=== PATIENT | male | born 1940 | race Caucasian/White ===

== ENCOUNTER 2018-02-18 13:39 | Inpatient (IN) | payer OTHER ==
[~2018-02-18] VITALS: Ht 185.4 cm; Wt 117.9 kg
[~2018-02-18 13:39] MED LIST: CARDURA4 MG PO; COLESTID1 GM PO; LOTREL 5-10 MG1 EACH; MOBIC7.5 MG PO; OMEPRAZOLE20 M2; PERCOCET PO; PROSCAR 5MG TABL5 MG PO
[2018-02-18 13:46] VITALS: BP 206/126
[2018-02-18 14:11] LABS: HEMATOCRIT 47.3 % (42.0-52.0); HEMOGLOBIN 15.5 gm/dL (14.0-18.0); MCH 29.3 pg (26.0-34.0); MCHC 32.7 g/dL (28.0-37.0); MCV 89.6 fL (80.0-100.0); MPV 9.3 fl. (7.2-11.1); NUCLEATED RBCS 0 /100WBC; PLATELET COUNT* 122 thou/uL (150-400); RBC 5.28 mil/uL (4.50-6.00); RDW-CV 14.3 % (10.5-14.5); WBC 11.8 thou/uL (4.0-11.0)
[2018-02-18 14:22] LABS: APTT 25.5 Seconds (25.0-31.3); INR 1.1
[2018-02-18 14:23] LABS: ANION GAP 10 mmol/L (7-16); BUN 13 mg/dL (7-18); CALCIUM 8.6 mg/dL (8.5-10.1); CHLORIDE 104 mmol/L (98-107); CO2 24 mmol/L (21-32); CREATININE 1.2 mg/dL (0.6-1.3); GLUCOSE 123 mg/dL (70-99); POTASSIUM 3.8 mmol/L (3.5-5.1); SODIUM 138 mmol/L (136-145)
[2018-02-18 14:31] LABS: BE -6.4 mmol/L (-2 to +3); HCO3 17.6 mmol/L (22.0-26.0); PCO2 31.5 mmHg (35.0-45.0); PO2 68.2 mmHg (75.0-100.0); pH 7.366 (7.340-7.450)
[2018-02-18 14:33] LABS: ALBUMIN 3.6 g/dL (3.4-5.0); ALKALINE PHOSPHATASE 60 U/L (46-116); LIPASE 79 U/L (73-393); MAGNESIUM 1.7 mg/dL (1.8-2.4); NT-PRO BRAIN NAT PEPTIDE 2230 pg/mL (<300); SGOT 16 U/L (15-37); SGPT 29 U/L (30-65); TOTAL BILIRUBIN 0.7 mg/dL (<0.1-1.0); TOTAL PROTEIN 7.7 g/dL (6.4-8.2); TROPONIN-I LEVEL <0.06 ng/mL (<0.06)
[2018-02-18 14:52] LABS: ABSOLUTE EOSINOPHILS 0.1 thou/uL (0.0-0.7); ABSOLUTE LYMPHOCYTES 1.2 thou/uL (0.8-5.3); ABSOLUTE MONOCYTES 0.9 thou/uL (0.0-1.2); ABSOLUTE NEUTROPHILS 9.6 thou/uL (1.6-8.1)
[2018-02-18 14:53] LABS: LARGE PLATELETS OCCASIONAL; PLATELET ESTIMATE DECREASED
[2018-02-18 15:07] VITALS: BP 128/69
[2018-02-18 16:33] VITALS: BP 147/81
--- NOTE | 2018-02-18 17:30 | NUR ---
PT ORIENTED TO ROOM AND UNIT. FOUND TO BE IN NEW ONSET AFIB. CONTACT DR. CAIN TO INFORM WILL START CARDIZEM PO AND CALLED IN CARDIAC CONSULT.
[2018-02-18 20:00] VITALS: BP 137/74
[2018-02-19] VITALS (7 sets, daily range): BP systolic 117–139; BP diastolic 62–79
--- NOTE | 2018-02-19 04:33 | NUR ---
RECEIVED REPORT AND ASSUMED CARE OF PATIENT AT 1930. 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 ASSESSMENT AND VITALS COMPLETED CHARTED, VSS. PATIENT A&OX4. PATIENT DENIES PAIN AND DISCOMFORT. PATIENT UP INDEPENDENTLY TO BATHROOM, PATIENT DOES HAVE SOME SHORTNESS OF AIR ON EXERTION BUT QUICKLY RECOVERS WITH REST. PATIENT REMAINS ON 6L O2 PER NC, SATS WNL . HOURLY ROUNDING OBSERVED. CALL LIGHT WITHIN REACH.
[2018-02-19 04:43] LABS: HEMATOCRIT 44.6 % (42.0-52.0); HEMOGLOBIN 14.6 gm/dL (14.0-18.0); MCH 29.5 pg (26.0-34.0); MCHC 32.8 g/dL (28.0-37.0); MPV 10.1 fl. (7.2-11.1); RBC 4.96 mil/uL (4.50-6.00); RDW-CV 14.3 % (10.5-14.5); WBC 11.5 thou/uL (4.0-11.0)
[2018-02-19 05:26] LABS: ALBUMIN 3.3 g/dL (3.4-5.0); CALCIUM 8.6 mg/dL (8.5-10.1); CREATININE 1.4 mg/dL (0.6-1.3); POTASSIUM 4.4 mmol/L (3.5-5.1); TOTAL BILIRUBIN 0.4 mg/dL (<0.1-1.0); TOTAL PROTEIN 6.8 g/dL (6.4-8.2)
--- NOTE | 2018-02-19 09:00 | NUR ---
VSS, ASSUMED CARE IN THE AM, ASSESSMENT PERFORMED AND CHARTED, FALL PRECAUTIONS IN PLACE AND CALL LIGHT IN REACH, PT IS ON 6L NC AND IS UP AD MAREN AND DENIES ANY PAIN. HE IS A FIB ON THE MONITOR, HE GOAL IS TO IMPROVE BREATHING. WILL FOLLOW WITH PLAN OF CARE.
--- NOTE | 2018-02-19 12:00 | NUR ---
VSS, ASSUMED CARE IN THE AM, ASSESSMENT PERFORMED AND CHARTED, FALL PRECAUTIONS IN PLACE AND CALL LIGHT IN RECAH, PT IS ON 4-6L NC AND IS UP AD MAREN, PT IS AFIB ON THE MONITOR, HE DENIES ANY PAIN AND HIS GOAL IS TO SIT UP IN CHAIR AND IMPROVE BREATHING, WILL FOLLOW WITH PLAN OF CARE.
--- NOTE | 2018-02-19 12:43 | EKG ---
[place] [address] ELECTROCARDIOGRAM REPORT Name: LEXIS HOBBS Room: [address] IN [facility]#: [id number] Admission: 02/18/18 Attend Phys: Arlene Ramirez MD Discharge: Date of : 40 Report #: [id number] THIS REPORT FOR: //name// [facility] ED Test Date: 2018-02-18 Test Time: 14:03:07 Pat Name: LEXIS SANCHEZN Department: Room: Gender: M Scientific Diver: : 1940 Requested By: Almas Mendez Order Number: [id number] MD: Reynaldo Jarrell Measurements Intervals [place] Rate: 115 P: 0 MA: 124 QRS: -53 QRSD: 126 T: 117 QT: 356 QTc: 493 Interpretive Statements atrial fibrillation Nonspecific IVCD with LAD Abnormal T, consider ischemia, lateral leads No previous ECG available for comparison Electronically Signed On 02-19-2018 12:43:06 CDT by Reynaldo Jarrell [email or web address] <ELECTRONICALLY SIGNED> By: Reynaldo Jarrell MD, [facility] 02/19/18 1243 D: [id number] 140 Reynaldo Jarrell MD, FACC /EPI
--- NOTE | 2018-02-19 12:45 | EKG ---
[place] [address] ELECTROCARDIOGRAM REPORT Name: LEXIS HOBBS Room: [address] ADM IN M.R.#: [id number] Admission: 02/18/18 Attend Phys: Arlene Ramirez MD Discharge: Date of : 40 Report #: [id number] THIS REPORT FOR: //name// [facility] Test Date: 2018-02-18 Test Time: 16:10:54 Pat Name: LEXIS HOBBS Department: Room: [address] Gender: M Manager Image: : 1940 Requested By: Arlene Ramirez Order Number: [id number] Reading MD: Reynaldo Jarrell Measurements Intervals [place] Rate: 95 P: GA: QRS: -46 QRSD: 128 T: 136 QT: 361 QTc: 454 Interpretive Statements Atrial fibrillation left axis nonspecific t wave changes Electronically Signed On 02-19-2018 12:45:22 CDT by Reynaldo Jarrell [email or web address] <ELECTRONICALLY SIGNED> By: Reynaldo Jarrell MD, [facility] 02/19/18 1245 1610 1610 Reynaldo Jarrell MD, FACC /EPI
--- NOTE | 2018-02-19 12:59 | 2DMMODE ---
[place] [address] 2 D/M-MODE ECHOCARDIOGRAM Name: LEXIS HOBBS Room: [address] IN [facility]#: [id number] Admission: 02/18/18 Attend Phys: Arlene Ramirez, Discharge: Date of : 40 Date of Service: 02/19/18 1259 Report #: [id number] THIS REPORT FOR: //name// APPROVED REPORT Study performed: 02/19/2018 11:05:45 EXAM: Comprehensive 2D, Doppler, and color-flow Echocardiogram Patient Location: In-Patient Room #: 222 Status: routine BSA: 2.41 HR: 56 bpm BP: 122/74 mmHg Rhythm: Atrial Fibrillation Other Information Study Quality: Good Indications Atrial Fibrillation 2D Dimensions LVEF(%): 62.11 (>50%) IVSd: 10.17 (7-11mm) LVOT Diam: 23.65 (18-24mm) LVDd: 46.36 mm PWd: 10.64 (7-11mm) Ascending Ao: 38.23 (22-36mm) LVDs: 30.88 (25-40mm) Aortic Root: 40.40 mm Salas's LVEF: 62.11 % Volumes Left Atrial Volume (Systole) LA ESV Index: 46.50 mL/m2 Aortic Valve AoV Peak Jeremías.: 1.17 m/s AO Peak Gr.: 5.51 mmHg LVOT Max P.58 mmHg AO Mean Gr.: 3.71 mmHg LVOT Mean P.76 mmHg LVOT Max V: 1.18 m/s AO V2 VTI: 24.21 cm LVOT Mean V: 0.76 m/s DUTCH (VTI): 4.04 cm2 LVOT V1 VTI: 22.28 cm Mitral Valve MV Decel. Time: 263.78 [place] [address] 2 D/M-MODE ECHOCARDIOGRAM Name: LEXIS HOBBS Room: [address] IN ..#: [id number] Admission: 02/18/18 Attend Phys: Arlene Ramirez, Discharge: Date of : 40 Date of Service: 02/19/18 1259 Report #: [id number] MV PHT: 76.50 ms MVA (PHT): 2.88 cm2 TDI Medial E' Jeremías.: 0.09 m/s Lateral E' Jeremías.: 0.14 m/s Pulmonary Valve PV Peak Jeremías.: 0.94 m/s PV Peak Gr.: 3.50 mmHg Tricuspid Valve RAP Estimate: 5.00 mmHg TR Peak Gr.: 33.56 mmHg RVSP: 38.56 mmHg PA Pressure: 38.56 mmHg Left Ventricle The left ventricle is normal size. There is normal LV segmental wall motion. There is normal left ventricular wall thickness. Left ventricular systolic function is normal. The left ventricular ejection fraction is within the normal range. LVEF is 55-60%. This study is not technically sufficient to allow evaluation of the LV diastolic function due to atrial fibrillation. Right Ventricle The right ventricle is normal size. The right ventricular systolic function is normal. Atria Left atrium is moderately dilated. The right atrium size is normal. Aortic Valve The aortic valve is normal in structure. Trace aortic regurgitation. There is no aortic valvular stenosis. Mitral Valve The mitral valve is normal in structure. Trace mitral regurgitation. No evidence of mitral valve stenosis. Tricuspid Valve The tricuspid valve is normal in structure. Mild tricuspid regurgitation. estimated pa pressure 40 mm Hg Pulmonic Valve The pulmonary valve is normal in structure. Mild [place] [address] 2 D/M-MODE ECHOCARDIOGRAM Name: FABYLEXIS Joseph Room: [address]#: [id number] Admission: 02/18/18 Attend Phys: Arlene Ramirez, Discharge: Date of : 40 Date of Service: 02/19/18 1259 Report #: [id number] Great Vessels Aortic root is mildly dilated. IVC is normal in size and collapses with >50% inspiration Pericardium There is no pericardial effusion. <Conclusion> LVEF is 55-60%. Left atrium is moderately dilated. Mild tricuspid regurgitation. estimated pa pressure 40 mm Hg <ELECTRONICALLY SIGNED> By: Reynaldo Jarrell MD, FACC 02/19/18 1259 1259 125 Reynaldo Jarrell MD, FACC /INF
--- NOTE | 2018-02-19 14:08 | CON ---
[address] [address] CONSULTATION Name: LEXIS HOBBS Room: [address] IN .R.#: [id number] Admission: 02/18/18 Attend Phys: Arlene Ramirez MD Discharge: Date of : 40 Report #: [id number] THIS REPORT FOR: //name// CC: Kim Ojeda [facility] physician/PCP Arlene Ramirez DATE OF SERVICE: 02/19/2018 HISTORY OF PRESENT ILLNESS: The patient is a 77-year-old white male who I was asked to see in the hospital today because he was noted to be in atrial fibrillation. The patient denies a previous history of heart disease. In fact, he has had a pharmacologic stress test in the past, supervised by Dr. Jim and was found to have no evidence of heart disease. He does have a long history of hypertension. He does not exercise on a regular basis. He was doing well until 3 days ago he started to cough. He had sinus drainage and felt chills. He was short of breath and felt a tightness in his chest. His brought him to the emergency room yesterday and he was felt to have bronchitis. He was noted to be in atrial fibrillation. Cardiology consultation was requested. He denies exertional chest tightness or jaw pain. He has had edema recently. He denied his heart beating irregular. He denied any lightheadedness or syncope. He has had no history of heart murmur. PAST MEDICAL HISTORY: He has had shoulder surgery, appendectomy, cataract extraction, and hypertension. MEDICATIONS ON ADMISSION: Consisted of Norvasc, Proscar, Cardura, Mobic, colestipol, and lisinopril. ALLERGIES: He has an intolerance to SULFA DRUGS. FAMILY HISTORY: His mother had heart disease. 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 He stays active, riding a motorcycle. Quit smoking in 1981, rarely drinks alcohol. REVIEW OF SYSTEMS: He has had no history of a stroke. He has had asthma. No history of peptic ulcer disease, liver disease, kidney disease, cancer, chronic skin condition, or psychiatric illness. He wears glasses. PHYSICAL EXAMINATION: GENERAL: Revealed a large, elderly male, lying in bed. He appeared in no acute distress. He weighed 260 pounds. VITAL SIGNS: He had blood pressure of 160/90, pulse is 90, and he was afebrile. HEENT: He was anicteric. Conjunctivae are pink. [place] [address] CONSULTATION Name: LEXIS HOBBS Room: [address] IN ..#: [id number] Admission: 02/18/18 Attend Phys: Arlene Ramirez MD Discharge: Date of : 40 Report #: [id number] NECK: Veins difficult to assess due to obesity. No carotid bruits. CHEST: Revealed bilateral coarse breath sounds. HEART: Irregular rhythm. No significant murmur. ABDOMEN: Obese. EXTREMITIES: Had no edema. Dorsalis pedis pulse 3+ in the left, cannot be palpated in the right. SKIN: Cool and dry. NEUROLOGIC: Nonfocal. PSYCHIATRIC: Mood is appropriate. His ECG showed what appeared to be atrial fibrillation with a left axis deviation. His workup in the emergency room yesterday, he had a chest x-ray that showed no infiltrate, normal heart size. He had previous lab work done yesterday that showed BUN 16, creatinine 1.4, glucose 157. His troponin 0.06. BNP 2230. TSH 0.6. White blood cell count 11.5 and hemoglobin 14.6. IMPRESSION AND RECOMMENDATIONS: 1. Bronchitis. 2. Atrial fibrillation. I would check echocardiogram. At this time, I would aim for anticoagulation and rate control only. I would not attempt cardioversion. 3. Obesity. 4. Hypertension. The patient has been on a calcium juany, JACK inhibitor, and alpha juany. 5. History of asthma. <ELECTRONICALLY SIGNED> By: Reynaldo Jarrell MD, [facility] 02/19/18 1408 0945 1019Davimali Jarrell MD, FAC /nt
--- NOTE | 2018-02-19 14:17 | NUR ---
Pt is A&O. Resides at home with his . Independent with ADLs. No DME. No home o2. No hx of HH or SNF. Goal is to return home at or. Following.
[2018-02-20 04:13] VITALS: BP 115/77
--- NOTE | 2018-02-20 04:37 | NUR ---
PATIENT PARTIALLY PROGRESSING TOWARDS GOALS: PATIENT ABLE TO BE WEANED DOWN TO 4L O2 NC WITH SATS >92%, ALTHOUGH PATIENT'S LUNGS WHEEZING. PATIENT SHORT OF BREATH WITH EXERTION. 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 PATIENT CONCERNED ABOUT ELEVATED BLOOD SUGAR, EDUCATION PROVIDED ABOUT EFFECTS OF STEROIDS AND ASSURED PATIENT OF HGB A1C CHECK. PATIENT VERBALIZES UNDERSTANDING. HOURLY ROUNDING OBSERVED, CALL LIGHT WITHIN REACH
[2018-02-20 04:44] LABS: CHOLESTEROL 131 mg/dL (<200); HDL CHOLESTEROL 69 mg/dL (>40); LDL CHOLESTEROL 56 mg/dL (<100); SERUM ASSESSMENT CLEAR; TC:HDL 1.9 Ratio (Not establshd); TRIGLYCERIDE 33 mg/dL (<150); VLDL 7 mg/dL (<40)
[2018-02-20 08:30] VITALS: BP 134/85
--- NOTE | 2018-02-20 11:02 | NUR ---
WAS ASKED TO CHECK COPAY FOR XARELTO 20MG TABS/MONTHLY SUPPLY. CALLED IN SCRIPT FROM DR MCLEOD TO ZANA/SURJIT. PER RANDALL, COPAY IS $75 FOR ONE MONTH
--- NOTE | 2018-02-20 11:08 | EKG ---
[place] [address] ELECTROCARDIOGRAM REPORT Name: LEXIS HOBBS Room: [address] ADM IN M.R.#: [id number] Admission: 02/18/18 Attend Phys: Arlene Ramirez MD Discharge: Date of : 40 Report #: [id number] THIS REPORT FOR: //name// [facility] Test Date: 2018-02-20 Test Time: 08:36:31 Pat Name: LEXIS HOBBS Department: Room: [address] Gender: M Pedodontist: : 1940 Requested By: Reynaldo Jarrell Order Number: [id number] Reading MD: Kit Marie Measurements Intervals [place] Rate: 63 P: MA: QRS: -42 QRSD: 133 T: 127 QT: 415 QTc: 425 Interpretive Statements Atrial fibrillation Left bundle branch block Baseline wander in lead(s) V1 Compared to ECG 02/18/2018 16:10:54 Left bundle-branch block now present T-wave abnormality no longer present Electronically Signed On 02-20-2018 11:08:17 CDT by Kit Marie [email or web address] <ELECTRONICALLY SIGNED> By: Kit Marie MD, [facility] 02/20/18 1108 0836 0836 Kit Marie MD, [facility] /EPI
[2018-02-20 12:41] VITALS: BP 156/76
--- NOTE | 2018-02-20 14:52 | NUR ---
Updated Pt regarding Xarelto cost, $75. Pt and in agreement and stated "we will have to make it work."
[2018-02-20 16:00] VITALS: BP 131/63
--- NOTE | 2018-02-20 17:44 | NUR ---
PATIENT IS ALERT AND ORIENTED TODAY VERY PLEASANT, HAS BEEN AT BEDSIDE TODAY. SOME COMPLAINTS OF PAIN WHEN COUGHING. VITAL SIGNS HAVE BEEN STABLE, PATIENT HAS BEEN ON ROOM AIR THIS AFTERNOON AND HAS MAINTAINED OXYGEN SATURATION IN THE MID 90'S. PATIENT IS UP AD MAREN IN ROOM, CALLS FOR HELP IF NEEDED. CALL LIGHT IS IN REACH, WILL CONTINUE TO MONITOR.
[2018-02-20 20:23] VITALS: BP 142/79
[2018-02-20 23:49] VITALS: BP 117/52
[2018-02-21 02:07] LABS: GLYCOHEMOGLOBIN (HGB A1C) 5.7 % (4.8-5.6)
[2018-02-21 04:00] VITALS: BP 128/78
[2018-02-21 04:13] LABS: HEMATOCRIT 42.1 % (42.0-52.0); HEMOGLOBIN 13.9 gm/dL (14.0-18.0); MCH 29.4 pg (26.0-34.0); MCV 89.1 fL (80.0-100.0); MPV 9.6 fl. (7.2-11.1); RBC 4.73 mil/uL (4.50-6.00); RDW-CV 14.6 % (10.5-14.5); WBC 12.7 thou/uL (4.0-11.0)
[2018-02-21 04:26] LABS: ALBUMIN 2.9 g/dL (3.4-5.0); CALCIUM 9.4 mg/dL (8.5-10.1); CREATININE 1.4 mg/dL (0.6-1.3); MAGNESIUM 2.4 mg/dL (1.8-2.4); PHOSPHORUS* 3.8 mg/dL (2.5-4.9); POTASSIUM 4.7 mmol/L (3.5-5.1)
--- NOTE | 2018-02-21 06:43 | NUR ---
Pt reports he is feeling very well this morning. On RA, VSS. States he is hopeful of being discharged today. Reports that he noticed that his sputum is darker this morning than it was previously. Will continue to monitor.
[2018-02-21 08:00] VITALS: BP 141/80
[2018-02-21] MEDS ORDERED: PREDNISONE 10 M10 MG PO (08:37)
[2018-02-21] MEDS ORDERED: LEVAQUIN 500 M500 M2 PO (08:37)
[2018-02-21] MEDS ORDERED: XARELTO20 MG PO (08:37)
[2018-02-21] MEDS ORDERED: LASIX 40 MG TAB40 M1 PO (08:37)
[2018-02-21] MEDS ORDERED: CARDIZEM CD120 MG PO (08:37)
[2018-02-21] MEDS ORDERED: POTASSIUM20 PO (08:37)
--- NOTE | 2018-02-21 10:35 | NUR ---
ASSUMED CARE OF PT AT 0730. PT SITTING UP IN THE CHAIR WAITING FOR BREAKFAST. PT A&0X4, DENIES ANY PAIN OR SHORTNESS OF BREATH. PT COMPLAINS OF CONSTIPATION. MILK OF MAG GIVEN. PT [place]. PT TRACING AFIB WITH BBB ON THE ROLL COVERER. RATE CONTROLLED IN THE 80'S. PT ON RA SAT UPPER 90'S. PT STATES HE HAS PRODUCTIVE COUGH THAT IS DARKER GREEN/BROWN. SPUTUM NOT OBSERVED. PT UP AD MAREN IN ROOM. PT GOAL FOR TODAY IS TO TRANSITION TO PO ANTIBIOTICS AND STEROIDS AND DISCHARGE HOME THIS AFTERNOON. AM ASSESSMENT CHARTED. MEDICATIONS PER MAR. PT REPOSITIONS SELF. HOURLY ROUNDING OBSERVED. BED IN LOW POSITION. CALL LIGHT WITHIN REACH. WILL CONTINUE PLAN OF CARE.
[2018-02-21 15:58] VITALS: BP 141/80
--- NOTE | 2018-02-21 16:35 | NUR ---
DISCHARGE ORDERS RECEIVED. DISCHARGE INSTRUCTIONS, CARE NOTES, SCRIPTS AND FOLLOW UP APPTS GIVEN TO PT. PT COMMUNICATES UNDERSTANDING OF DISCHARGE TEACHING. IV AND LOTTERY CLERK REMOVED. PT DISCHARGED WITH ALL BELONGINGS AND PAPERWORK VIA WHEELCHAIR WITH NURSING STAFF TO SPOUSE OWN PERSONAL VEHICLE.
== END 2018-02-21 16:32 | disposition home or self-care (01) | DRG 291 ==
LOC: M.ERS 13:39 → M.TBA-ER 14:37 → M.2W 14:37
PROVIDERS: Family Medicine; Internal Medicine Cardiovascular Disease; ADMIT Internal Medicine
DX: I50.33 Acute on chronic diastolic (congestive) heart failure (principal); J96.01 Acute respiratory failure with hypoxia; J45.901 Unspecified asthma with (acute) exacerbation; R65.10 Systemic inflammatory response syndrome (SIRS) of non-infectious origin without acute organ dysfunction; M19.90 Unspecified osteoarthritis, unspecified site; I12.9 Hypertensive chronic kidney disease with stage 1 through stage 4 chronic kidney disease, or unspecified chronic kidney disease; N18.3 Chronic kidney disease, stage 3 (moderate); K21.9 Gastro-esophageal reflux disease without esophagitis; J44.9 Chronic obstructive pulmonary disease, unspecified; J40 Bronchitis, not specified as acute or chronic; I48.91 Unspecified atrial fibrillation; E66.9 Obesity, unspecified; Z90.49 Acquired absence of other specified parts of digestive tract; Z98.49 Cataract extraction status, unspecified eye; Z79.899 Other long term (current) drug therapy; Z88.8 Allergy status to other drugs, medicaments and biological substances; Z88.2 Allergy status to sulfonamides; Z87.891 Personal history of nicotine dependence; Z68.34 Body mass index [BMI] 34.0-34.9, adult

== ENCOUNTER → 2018-02-28 | Outpatient (CLI) | payer OTHER ==
[~2018-02-28] MED LIST changes: +CARDIZEM CD120 MG PO; +LASIX 40 MG TAB40 M1 PO; +LEVAQUIN 500 M500 M2 PO; +POTASSIUM20 PO; +PREDNISONE 10 M10 MG PO; +XARELTO20 MG PO
[2018-02-28 11:20] LABS: CALCIUM 9.3 mg/dL (8.5-10.1); CREATININE 1.5 mg/dL (0.6-1.3); POTASSIUM 4.2 mmol/L (3.5-5.1)
== END ==
LOC: M.LAB 10:21
PROVIDERS: Nurse Practitioner
DX: I11.0 Hypertensive heart disease with heart failure (principal); I50.32 Chronic diastolic (congestive) heart failure; J45.909 Unspecified asthma, uncomplicated